=== PATIENT | male | born 1995 | race Hispanic/Latino ===

== ENCOUNTER 2018-10-26 19:20 | Emergency (ER) | payer SELFPAY ==
[2018-10-26 20:08] LABS: Basophils # (Auto) 0.1 K/mm3 (0.0-0.1); Basophils % (Auto) 0.8 % (0.0-1.8); Eosinophils # (Auto) 0.1 K/mm3 (0.0-0.4); Eosinophils % (Auto) 0.6 % (0.0-4.3); Hematocrit 46.6 % (35.5-45.6); Hemoglobin 16.3 gm/dl (11.8-15.2); Lymphocytes % (Auto) 14.8 % (13.4-35.0); Mean Corpuscular HGB Conc 35 % (32-34); Mean Corpuscular Volume 93 fl (84-94); Monocytes # (Auto) 0.5 K/mm3 (0.0-0.8); Monocytes % (Auto) 3.4 % (0.0-7.3); Platelet Count 277 K/mm3 (140-440); Red Blood Count 5.03 M/mm3 (3.65-5.03); Red Cell Distribution Width 12.9 % (13.2-15.2)
[2018-10-26 20:29] LABS: Alanine Aminotransferase 21 units/L (7-56); Albumin 4.1 g/dL (3.9-5); BUN/Creatinine Ratio 9; Blood Urea Nitrogen 8 mg/dL (9-20); Calcium 9.1 mg/dL (8.4-10.2); Hemolysis Index 40
[2018-10-26 20:39] LABS: Bilirubin,Urine NEG (Negative); Blood,Urine NEG (Negative); Color,Urine Colorless (Yellow); Protein,Urine <15 mg/dL mg/dL (Negative); RBC,Urine < 1.0 /HPF (0.0-6.0); Urobilinogen,Urine < 2.0 mg/dL (<2.0); WBC,Urine < 1.0 /HPF (0.0-6.0)
[2018-10-26] MEDS ORDERED: MORPHINE IV ONE (22:03)
[2018-10-26] MEDS ORDERED: NACL 0.9% 1000 ML 1,000 ML IV ONE (22:03)
[2018-10-26] MEDS ORDERED: ZOFRAN IV ONE (22:03)
--- NOTE | 2018-10-26 22:05 | Emergency Department Report ---
ED Abdominal Pain HPI - General Chief Complaint: Abdominal Pain Stated Complaint: STOMACH PAIN HEADACHE Time Seen by Provider: 10/26/18 21:54 Source: patient Mode of arrival: Ambulatory Limitations: No Limitations - History of Present Illness Initial Comments: Mr. Coley is a 23-year-old gentleman without significant past medical history presents with right lower quadrant pain moderately severe. Gradual onset earlier today. Subjective fever. Positive nausea. Diminished appetite. Called EMS for evaluation. Did not receive transportation by EMS. He had normal vital signs. No previous history of surgery. MD Complaint: abdominal pain -: Gradual Location: RLQ Severity: moderate Quality: aching, sharp Consistency: constant Worsens With: movement Associated Symptoms: nausea, other (subjective fever) - Related Data Allergies Allergy/AdvReac Type Severity Reaction Status Date / Time No Known Allergies Allergy Unverified 10/26/18 19:37 ED Review of Systems ROS: Stated complaint: STOMACH PAIN HEADACHE Other details as noted in HPI Comment: All other systems reviewed and negative Constitutional: fever, malaise Gastrointestinal: abdominal pain, nausea ED Past Medical Hx - Past Medical History Previous Medical History?: No - Surgical History Past Surgical History?: No - Social History Smoking Status: Current Some Day Smoker Substance Use Type: Alcohol, Marijuana Other Social History: 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 Absent: respiratory distress - Cardiovascular Cardiovascular Exam: Present: regular rate, normal rhythm. Absent: systolic murmur, diastolic murmur, rubs, gallop - GI/Abdominal GI/Abdominal exam: Present: soft, distended, tenderness (right lower quadrant tenderness with voluntary guarding), guarding, normal bowel sounds - Rectal Rectal exam: Present: deferred - Extremities Exam Extremities exam: Present: normal inspection - Back Exam Back exam: Present: normal inspection - Neurological Exam Neurological exam: Present: alert, oriented X3 - Psychiatric Psychiatric exam: Present: normal affect, normal mood - Skin Skin exam: Present: warm, dry, intact, normal color. Absent: rash ED Course Vital Signs 10/26/18 10/26/1819 19:38 21:47 23:00 Temperature 97.5 F L Pulse Rate 67 59 L 60 Respiratory 18 14 16 Rate Blood Pressure 102/55 Blood Pressure 115/56 126/67 [Left] O2 Sat by Pulse 98 100 96 Oximetry ED Medical Decision Making - Lab Data Result diagrams: 10/26/18 19:53 10/26/18 19:53 - Radiology Data Radiology results: report reviewed CT abdomen and pelvis with IV contrast: No acute process according to radiology report - Medical Decision Making Mr. Coley presents to light lower quadrant abdominal pain. Labs remarkable for slightly elevated white blood count. CT abdomen and pelvis normal without acute process. Mr. Coley given reassurance. Suspect early gastroenteritis. Recommended clear liquid diet. Critical care attestation.: If time is entered above; I have spent that time in minutes in the direct care of this critically ill patient, excluding procedure time. ED Disposition Clinical Impression: Abdominal pain Disposition: DC-01 TO HOME OR SELFCARE Is pt being admited?: No Does the pt Need Aspirin: No Condition: Stable Instructions: Acute Abdominal Pain (ED) Referrals: ADELAIDE DALLAS MD [Primary Care Provider] - 3-5 Days
--- NOTE | 2018-10-26 23:08 | Cat Scan Report ---
PROCEDURE: CT abdomen and pelvis with contrast. TECHNIQUE: Computerized axial tomography of the abdomen and pelvis was performed after the IV inject ion of iodinated nonionic contrast. CT DOSE LENGTH PRODUCT: Not provided mGycm HISTORY: right lower quadrant pain and leukocytosis COMPARISONS: None. FINDINGS: The lung bases are clear. There are no pleural effusions. The heart size is normal. The liver, pancre as and spleen appear normal. The gallbladder is present. There is no biliary dilatation. The adrenal glands are not enlarged. Both kidneys appear normal in size and configuration. The abdominal aorta buenrostro s a normal caliber. There is no retroperitoneal adenopathy. The unopacified gastrointestinal tract is unremarkable. A normal sized appendix is visible. The bladder, seminal vesicles and prostate appear normal. The regional skeleton appears intact. IMPRESSION: Normal studies of the abdomen and pelvis. This document is electronically signed by Denys Carrion MD., October 26 2018 11:06:50 PM ET
[2018-10-26] MEDS ORDERED: NORCO 5/325 PO ONE (23:50)
[2018-10-27 00:42] VITALS: BP 120/58
== END 2018-10-27 00:42 | disposition home or self-care (01) ==
LOC: ED 19:20
DX: R10.31 Right lower quadrant pain (principal); R50.9 Fever, unspecified; R11.0 Nausea; F17.200 Nicotine dependence, unspecified, uncomplicated; F12.10 Cannabis abuse, uncomplicated
CPT/HCPCS: 36415; 74177; 80053; 81001; 85025; 96374; 96375; 99284; J2270; J2405; J7030; Q9967

== ENCOUNTER 2022-02-08 08:32 | Emergency (ER) | payer OTHER ==
[2022-02-08 08:45] VITALS: BP 129/72
[2022-02-08] MEDS ORDERED: IBUPROFEN 800 MG TAB PO ONE (11:48)
[2022-02-08] MEDS ORDERED: CYCLOBENZAPRINE 10 MG TAB PO ONE (11:48)
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
== END 2022-02-08 12:36 | disposition home or self-care (01) ==
LOC: ED 08:32
DX: M25.531 Pain in right wrist (principal); M79.18 Myalgia, other site; V87.7XXA Person injured in collision between other specified motor vehicles (traffic), initial encounter; Y93.89 Activity, other specified; Y92.488 Other paved roadways as the place of occurrence of the external cause; Y99.8 Other external cause status
CPT/HCPCS: 99283